=== PATIENT | female | born 1995 | race African-American/Black ===

== ENCOUNTER 2024-01-16 10:50 | Emergency (ER) | payer SELFPAY ==
[2024-01-16] MEDS ORDERED: Clindamycin 150 MG CAP ONE (11:37)
== END 2024-01-16 11:56 | disposition home or self-care (01) ==
LOC: MADERS 10:50
DX: L03.317 Cellulitis of buttock (principal); L02.91 Cutaneous abscess, unspecified
CPT/HCPCS: 99283